=== PATIENT | male | born 1955 | race Caucasian/White ===

== ENCOUNTER 2020-09-17 14:07 | Emergency (ER) | payer MEDICARE, OTHER ==
--- NOTE | 2020-09-17 14:48 | EDM.PDOC ---
ED HPI GENERAL MEDICAL PROBLEM - General Chief Complaint: General Stated Complaint: SWALLOWED SODA CAN TAB Time Seen by Provider: 09/17/20 14:40 Source of Information: Reports: Patient - History of Present Illness INITIAL COMMENTS - FREE TEXT/NARRATIVE: Pt is here because he is 95% certain he swallowed a soda can tab yesterday. He takes the tabs off on a regular basis so they do not get caught in his jacobs, but this one he accidentally dropped in the can. He thinks he then swallowed it a while later. He called the ER and was advised to watch for blood or signs of it passing. He has not noted any blood nor has he passed the tab. He came in today for evaluation to make sure it is moving through, and that he did, in fact, swallow it. No trouble eating or drinking. No blood in the stool or abdominal pain. No nausea or vomiting. Onset Date: 09/16/20 - Related Data Allergies Allergy/AdvReac Type Severity Reaction Status Date / Time No Known Allergies Allergy Verified 09/17/20 14:24 Home Meds: Home Meds amLODIPine Besylate [Amlodipine Besylate] 10 mg PO ASDIRECTED 09/17/20 [History] lisinopriL [Lisinopril] 20 mg PO ASDIRECTED 09/17/20 [History] Past Medical History Cardiovascular History: Reports: Hypertension - Past Surgical History GI Surgical History: Reports: Cholecystectomy Social & Family History - Tobacco Use Tobacco Use Status *Q: Unknown Ever Used Tobacco - Caffeine Use Caffeine Use: Reports: Coffee - Recreational Drug Use Recreational Drug Use: No ED ROS GENERAL - Review of Systems Review Of Systems: Comprehensive ROS is negative, except as noted in HPI. ED EXAM, GENERAL - Physical Exam Exam: See Below Exam Limited By: No Limitations General Appearance: Alert, WD/WN, No Apparent Distress Eye Exam: Bilateral Eye: Normal Inspection Ears: Normal External Exam Throat/Mouth: Normal Voice, No Airway Compromise Head: Atraumatic, Normocephalic Neck: Supple, Full Range of Motion Respiratory/Chest: No Respiratory Distress, Lungs Clear, Normal Breath Sounds, No Accessory Muscle Use, Chest Non-Tender Cardiovascular: Normal Peripheral Pulses, Regular Rate, Rhythm, No Murmur GI/Abdominal: Normal Bowel Sounds, Soft, Non-Tender, No Distention. No: Guarding, Rebound (Male) Exam: Deferred Rectal (Males) Exam: Deferred Back Exam: Full Range of Motion Extremities: Normal Inspection, Normal Range of Motion Neurological: Alert, Oriented, Normal Cognition, Normal Gait, No Motor/Sensory Deficits Psychiatric: Normal Affect, Normal Mood Skin Exam: Warm, Dry, Intact, Normal Color, No Rash Lymphatic: No Adenopathy Course - Vital Signs Last Recorded V/S: Last Vital Signs Temp 98.6 F 09/17/20 14:21 Pulse 106 H 09/17/20 14:21 Resp 16 09/17/20 14:21 BP 159/106 H 09/17/20 14:21 Pulse Ox 100 09/17/20 14:21 - Orders/Labs/Meds Orders: Active Orders 24 hr Category Date Time Status Abdomen 2V AP Flat Upright [CR] Urgent Exams 09/17/20 14:44 Ordered - Re-Assessments/Exams Free Text/Narrative Re-Assessment/Exam: Reviewed Xrays with the pt. No visible foreign body noted. Reassured pt that it was either not swallowed or has already passed. Pt verbalized understanding. 09/17/20 15:35 Departure - Departure Time of Disposition: 15:36 Disposition: Home, Self-Care 01 Condition: Good Clinical Impression: H/O swallowed foreign body - Discharge Information *PRESCRIPTION DRUG MONITORING PROGRAM REVIEWED*: Not Applicable *COPY OF PRESCRIPTION DRUG MONITORING REPORT IN PATIENT LATESHA: Not Applicable Forms: ED Department Discharge Additional Instructions: Avoid dropping pop tabs into the can Continue to monitor for blood in the stool for a few more days Follow up with you PCP as needed Sepsis Event Note (ED) - Evaluation Sepsis Screening Result: No Definite Risk - Focused Exam Vital Signs: Vital Signs Temp Pulse Resp BP Pulse Ox 09/17/20 14:21 98.6 F 106 H 16 159/106 H 100 - My Orders Last 24 Hours: My Active Orders 09/17/20 14:44 Abdomen 2V AP Flat Upright [CR] Urgent - Assessment/Plan Last 24 Hours: My Active Orders 09/17/20 14:44 Abdomen 2V AP Flat Upright [CR] Urgent
--- NOTE | 2020-09-17 16:04 | CR ---
PROCEDURE INFORMATION: Exam: XR Abdomen Exam date and time: 09/17/2020 3:02 PM Age: 65 years old Clinical indication: Other: Possibly swallow soda tab 24 hours ago; Additional info: Swallowed foreign body TECHNIQUE: Imaging protocol: XR of the abdomen. Views: 2 Views. Upright and supine views. COMPARISON: No relevant prior studies available. FINDINGS: Gastrointestinal tract: Normal. No bowel dilation. Intraperitoneal space: Normal. No free air. Bones/joints: Unremarkable for age. Other findings: None IMPRESSION: No ingested foreign body identified.
== END 2020-09-17 15:47 | disposition home or self-care (01) ==
LOC: DL.ED 14:07
DX: T18.108A Unspecified foreign body in esophagus causing other injury, initial encounter (principal); I10 Essential (primary) hypertension; Z79.899 Other long term (current) drug therapy
CPT/HCPCS: 74019; 99282; 99283-25